=== PATIENT | male | born 1995 | race Two or more races ===

== ENCOUNTER 2019-11-17 13:39 | Emergency (ER) | payer OTHER ==
[~2019-11-17] VITALS: Ht 180.3 cm; Wt 78.0 kg
[2019-11-17] MEDS ORDERED: ETOMIDATE (2MG/ML) 20ML VIAL IV ONE (13:45)
[2019-11-17 14:16] VITALS: BP 121/78
== END 2019-11-17 14:40 | disposition home or self-care (01) ==
LOC: ER 13:39 → EEVIPCON 13:39 → ER 14:40
DX: S43.015A Anterior dislocation of left humerus, initial encounter (principal); Z90.49 Acquired absence of other specified parts of digestive tract; W19.XXXA Unspecified fall, initial encounter; Y93.89 Activity, other specified; Y92.89 Other specified places as the place of occurrence of the external cause; Y99.8 Other external cause status
CPT/HCPCS: 23650; 73030; 96374